=== PATIENT | female | born 1990 | race Caucasian/White ===

== ENCOUNTER 2018-03-22 03:15 | Inpatient (IN) | payer OTHER, MEDICAID ==
[2018-03-22] MEDS ORDERED: LACTATED RINGER'S 1,000 ML IV (03:55)
[2018-03-22] MEDS ORDERED: LIDOCAINE 1% (MPF) 30 ML INJ INJ (04:00)
[2018-03-22] MEDS ORDERED: OXYTOCIN 30 UNITS/LR 500 ML IV ×2 (04:00→09:30)
[2018-03-22] MEDS ORDERED: MISOPROSTOL 200 MCG TAB PR ×2 (04:00→09:30)
[2018-03-22] MEDS ORDERED: METHYLERGONOVINE 0.2 MG INJ IM ×2 (04:00→09:30)
[2018-03-22] MEDS ORDERED: BUTORPHANOL 2 MG INJ IV (04:00)
[2018-03-22] MEDS ORDERED: CARBOPROST 250 MCG INJ IM ×2 (04:00→09:30)
[2018-03-22] MEDS ORDERED: IBUPROFEN 600 MG TAB PO (04:00)
[2018-03-22] MEDS: AMPICILLIN 2 GM/NS (PMX) 100 ML IV (04:27)
[2018-03-22] MEDS ORDERED: MINERAL OIL LIGHT 10 ML VIAL TOP (04:30)
[2018-03-22 05:00] LABS: ADD MAN DIFF? NO
[2018-03-22 05:04] LABS: WHITE BLOOD COUNT 13.4 10^3/ul (4.8-10.8)
[2018-03-22 05:04] LABS: BASOPHILS % 0.2 % (0.0-2.0); EOSINOPHILS % 0.3 % (0.0-7.0); HEMATOCRIT 31.8 % (37.0-47.0); HEMOGLOBIN 10.5 g/dl (12.0-16.0); LYMPHOCYTES # 1.8 10^3/ul (0.8-2.9); LYMPHOCYTES % 13.1 % (15.0-51.0); MEAN CORPUSCULAR HEMOGLOBIN 27.1 pg (29.0-33.0); MONOCYTE # 1.1 10^3/ul (0.3-0.9); MONOCYTES % 7.8 % (0.0-11.0); NEUTROPHIL # 10.4 10^3/ul (1.6-7.5); NEUTROPHILS % 77.5 % (39.0-77.0); PLATELET COUNT 252 10^3/UL (140-415); RED BLOOD COUNT 3.88 10^6/ul (4.20-5.40); RED CELL DISTRIBUTION WIDTH 14.4 % (11.5-14.5)
[2018-03-22] MEDS: LACTATED RINGER'S 1,000 ML IV* ×3 (05:11→20:00)
[2018-03-22 05:26] LABS: INR 0.86; PROTIME 11.8 Sec (11.9-14.9); PT RATIO 0.9
[2018-03-22 05:27] LABS: PARTIAL THROMBOPLASTIN TIME 29.2 Sec (25.0-35.0)
[2018-03-22 06:03] LABS: HEPATITIS B SURFACE ANTIGEN NEGATIVE (NEGATIVE)
[2018-03-22] MEDS: OXYTOCIN 30 UNITS/LR 500 ML IV ×2 (07:10→07:51)
[2018-03-22] MEDS ORDERED: AMPICILLIN 1 GM/NS (PMX) 50 ML IV (08:00)
[2018-03-22] MEDS: CEFTRIAXONE 1 GM/50 ML (PMX) 50 ML IVPB (08:23)
[2018-03-22] MEDS ORDERED: WITCH HAZEL/GLYCERIN PAD PR (09:30)
[2018-03-22] MEDS ORDERED: ZOLPIDEM 5 MG TAB PO (09:30)
[2018-03-22] MEDS ORDERED: OXYCODONE/ASPIRIN (4.88/325) TAB PO ×2 (09:30)
[2018-03-22] MEDS: IBUPROFEN 600 MG TAB PO ×2 (12:30→17:50)
[2018-03-22] MEDS: BENZOCAINE 20% 56 ML SPRAY TOP (12:30)
[2018-03-22] MEDS: LANOLIN 7 GM TUBE TOP (12:30)
[2018-03-22 12:36] LABS: BARBITURATES Negative (NEGATIVE); BENZODIAZEPINES Negative (NEGATIVE); CANNABINOIDS Positive (NEGATIVE); COCAINE Negative (NEGATIVE); OPIATES Negative (NEGATIVE)
[2018-03-22 12:38] LABS: AMPHETAMINE/METHAMPHETAMINE Positive (NEGATIVE)
[2018-03-22 15:11] LABS: RAPID PLASMA REAGIN NONREACTIVE (NR)
[2018-03-22] MEDS: SENNA/DOCUSATE NA (8.6MG/50MG) TAB PO (21:43)
[2018-03-23] MEDS: IBUPROFEN 600 MG TAB PO ×4 (00:22→17:54)
[2018-03-23] MEDS: LACTATED RINGER'S 1,000 ML IV* ×2 (04:00→12:00)
[2018-03-23 08:09] LABS: ADD MAN DIFF? NO
[2018-03-23 08:11] LABS: WHITE BLOOD COUNT 12.6 10^3/ul (4.8-10.8)
[2018-03-23 08:11] LABS: BASOPHIL # 0.1 10^3/ul (0.0-0.1); BASOPHILS % 0.4 % (0.0-2.0); EOSINOPHILS # 0.1 10^3/ul (0.0-0.5); EOSINOPHILS % 0.7 % (0.0-7.0); HEMATOCRIT 32.3 % (37.0-47.0); HEMOGLOBIN 10.4 g/dl (12.0-16.0); LYMPHOCYTES # 2.6 10^3/ul (0.8-2.9); LYMPHOCYTES % 20.5 % (15.0-51.0); MEAN CORPUSCULAR HEMOGLOBIN 27.2 pg (29.0-33.0); MEAN CORPUSCULAR HGB CONC 32.2 g/dl (32.0-37.0); MEAN CORPUSCULAR VOLUME 84.3 fl (82.0-101.0); MEAN PLATELET VOLUME 10.1 fl (7.4-10.4); MONOCYTE # 0.6 10^3/ul (0.3-0.9); NEUTROPHIL # 9.1 10^3/ul (1.6-7.5); PLATELET COUNT 257 10^3/UL (140-415); RED BLOOD COUNT 3.83 10^6/ul (4.20-5.40); RED CELL DISTRIBUTION WIDTH 14.4 % (11.5-14.5)
[2018-03-23] MEDS: SENNA/DOCUSATE NA (8.6MG/50MG) TAB PO ×2 (09:00→21:57)
[2018-03-24] MEDS: IBUPROFEN 600 MG TAB PO ×3 (00:20→12:28)
[2018-03-24] MEDS: SENNA/DOCUSATE NA (8.6MG/50MG) TAB PO (10:39)
[2018-03-24] MEDS: DIPHTH/TET/ACEL PERTUSS (ADULT) 0.5 ML VIAL IM* (10:40)
[2018-04-07 14:04] LABS: RUBELLA ANTIBODY - IGG <0.90 index; RUBELLA ANTIBODY - IGM <20.00 AU/mL
== END 2018-03-24 16:46 | disposition home or self-care (01) | DRG 775 ==
LOC: OBT 03:15 → L-D 03:50 → PP1 08:58
PROVIDERS: Obstetrics & Gynecology
PROC: 10E0XZZ Delivery of Products of Conception, External Approach (ICD-10-PCS; principal; 2018-03-22)
DX: O80 Encounter for full-term uncomplicated delivery (principal); Z3A.37 37 weeks gestation of pregnancy; Z37.0 Single live birth
CPT/HCPCS: 80307; 85025; 85610; 85730; 86592; 86762; 86850; 86900; 86901; 87340; 90715